=== PATIENT | female | born 1980 | race Caucasian/White ===

== ENCOUNTER 2019-07-20 13:15 | Emergency (ER) | payer OTHER, SELFPAY ==
[~2019-07-20] VITALS: Ht 167.6 cm; Wt 58.8 kg
[2019-07-20 13:24] VITALS: BP 130/65
--- NOTE | 2019-07-20 13:28 | NUR ---
[employer] NOTE: C SPINE PRECAUTIONS INITIATED IN TRIAGE.
[2019-07-20] MEDS ORDERED: LEVO5TAB29 PO (13:34)
--- NOTE | 2019-07-20 13:36 | NUR ---
C-COLLAR PLACED IN TRIAGE. PT STATES SHE TOOK TYLENOL AFTER INJURY.
== END 2019-07-20 16:02 | disposition home or self-care (01) ==
LOC: ED 15:55
DX: S16.1XXA Strain of muscle, fascia and tendon at neck level, initial encounter (principal); S09.90XA Unspecified injury of head, initial encounter; Z85.21 Personal history of malignant neoplasm of larynx; W18.30XA Fall on same level, unspecified, initial encounter; Y93.89 Activity, other specified; Y92.69 Other specified industrial and construction area as the place of occurrence of the external cause; Y99.0 Civilian activity done for income or pay
CPT/HCPCS: 70450; 72125; 99284